=== PATIENT | male | born 1950 | race Caucasian/White ===

== ENCOUNTER 2017-05-20 16:10 | Emergency (ER) | payer OTHER ==
[~2017-05-20] VITALS: Ht 167.6 cm; Wt 102.0 kg
[2017-05-20 16:12] VITALS: Ht 167.6 cm; Wt 102.0 kg
[2017-05-20 19:00] VITALS: BP 145/84
== END 2017-05-20 19:01 | disposition home or self-care (01) ==
LOC: ED 16:10
DX: R07.81 Pleurodynia (principal); R03.0 Elevated blood-pressure reading, without diagnosis of hypertension; K21.9 Gastro-esophageal reflux disease without esophagitis
CPT/HCPCS: J1885

== ENCOUNTER 2017-11-30 14:28 | Emergency (ER) | payer OTHER ==
[2017-11-30 14:32] VITALS: Ht 167.6 cm
[2017-11-30 15:20] VITALS: BP 133/81
== END 2017-11-30 15:20 | disposition home or self-care (01) ==
LOC: ED 14:28
DX: M10.072 Idiopathic gout, left ankle and foot (principal); E11.9 Type 2 diabetes mellitus without complications; K21.9 Gastro-esophageal reflux disease without esophagitis
CPT/HCPCS: J1885

== ENCOUNTER 2018-11-15 13:47 | Emergency (ER) | payer MEDICARE, OTHER ==
[~2018-11-15] VITALS: Ht 167.6 cm; Wt 90.9 kg
[2018-11-15 14:19] VITALS: Ht 167.6 cm; Wt 90.9 kg
[2018-11-15 15:44] VITALS: BP 121/71
== END 2018-11-15 15:44 | disposition home or self-care (01) ==
LOC: ED 13:47
DX: B35.9 Dermatophytosis, unspecified (principal); I10 Essential (primary) hypertension; E11.9 Type 2 diabetes mellitus without complications; K21.9 Gastro-esophageal reflux disease without esophagitis; Z98.890 Other specified postprocedural states

== ENCOUNTER 2018-12-16 13:07 | Emergency (ER) | payer MEDICARE, OTHER ==
[2018-12-16 14:52] LABS: CALCIUM 8.3 mg/dL (8.5-10.1); CARBON DIOXIDE 28.7 mmol/L (21-32); CHLORIDE SERUM 106 mmol/L (98-107); GFR1 > 60 mL/min; GLUCOSE SERUM 133 mg/dL (74-106); POTASSIUM SERUM 3.8 mmol/L (3.5-5.1); SODIUM SERUM 140 mmol/L (136-145)
[2018-12-16 15:49] VITALS: BP 122/74
== END 2018-12-16 15:49 | disposition home or self-care (01) ==
LOC: ED 13:07
PROVIDERS: Emergency Medicine
DX: R25.2 Cramp and spasm (principal); I10 Essential (primary) hypertension; E11.9 Type 2 diabetes mellitus without complications; K21.9 Gastro-esophageal reflux disease without esophagitis
CPT/HCPCS: J1885

== ENCOUNTER 2019-05-10 20:46 | Observation (INO) | payer OTHER ==
[~2019-05-10] VITALS: Ht 167.6 cm; Wt 87.5 kg
[2019-05-10 20:52] VITALS: Ht 167.6 cm; Wt 87.5 kg
[2019-05-10 23:54] LABS: BASOPHIL % 0.6 % (0-2); PLATELET COUNT 132 x10^3mcL (130-400); RED CELL DISTRIBUTION WIDTH 13.4 % (11.5-14.5)
[2019-05-11 00:09] LABS: ALBUMIN 3.8 g/dL (3.4-5.0); ALKALINE PHOSPHATASE 80 U/L (46-116); ALT/SGPT 33 U/L (16-63); AMYLASE 77 U/L (25-115); AST/SGOT 29 U/L (15-37); BILIRUBIN TOTAL 0.4 mg/dL (0.20-1.00); CALCIUM 8.7 mg/dL (8.5-10.1); CARBON DIOXIDE 27.5 mmol/L (21-32); CHLORIDE SERUM 103 mmol/L (98-107); GFR1 > 60 mL/min; GLUCOSE SERUM 135 mg/dL (74-106); LIPASE 96 IU/L (73-393); POTASSIUM SERUM 4.6 mmol/L (3.5-5.1); SODIUM SERUM 139 mmol/L (136-145); TOTAL PROTEIN, SERUM 8.1 g/dL (6.4-8.2)
[2019-05-11 06:42] LABS: BASOPHIL % 0.3 % (0-2); RED CELL DISTRIBUTION WIDTH 12.9 % (11.5-14.5)
[2019-05-11 06:49] LABS: PLATELET COUNT 115 x10^3mcL (130-400)
[2019-05-11 07:14] LABS: CALCIUM 8.2 mg/dL (8.5-10.1); CARBON DIOXIDE 25.6 mmol/L (21-32); CHLORIDE SERUM 107 mmol/L (98-107); CREATININE SERUM 0.8 mg/dL (0.7-1.3); GFR1 > 60 mL/min; GLUCOSE SERUM 96 mg/dL (74-106); POTASSIUM SERUM 4.3 mmol/L (3.5-5.1); SODIUM SERUM 140 mmol/L (136-145)
[2019-05-11] MEDS ORDERED: PRILOSEC OTC20 M1 (07:41)
[2019-05-11 12:08] VITALS: BP 166/62
== END 2019-05-11 16:03 | disposition home or self-care (01) ==
LOC: ED 20:46 → MU 23:06
PROVIDERS: Emergency Medicine; ADMIT Internal Medicine Pulmonary Disease
DX: K56.609 Unspecified intestinal obstruction, unspecified as to partial versus complete obstruction (principal); K21.9 Gastro-esophageal reflux disease without esophagitis
CPT/HCPCS: G0378; J1200; J1650; J1885; J2765; J3490; J7030

== ENCOUNTER 2019-09-22 16:49 | Emergency (ER) | payer OTHER ==
[~2019-09-22] VITALS: Ht 177.8 cm; Wt 88.5 kg
[~2019-09-22 16:49] MED LIST: PRILOSEC OTC20 M1
[2019-09-22 16:58] VITALS: Ht 177.8 cm; Wt 88.5 kg
[2019-09-22 17:50] LABS: BASOPHIL % 0.7 % (0-2); PLATELET COUNT 143 x10^3mcL (130-400); RED CELL DISTRIBUTION WIDTH 13.5 % (11.5-14.5)
[2019-09-22 18:02] LABS: CALCIUM 8.8 mg/dL (8.5-10.1); CARBON DIOXIDE 25.3 mmol/L (21-32); CHLORIDE SERUM 104 mmol/L (98-107); GFR1 > 60 mL/min; GLUCOSE SERUM 102 mg/dL (74-106); POTASSIUM SERUM 3.9 mmol/L (3.5-5.1); SODIUM SERUM 140 mmol/L (136-145)
[2019-09-22 18:06] LABS: ALKALINE PHOSPHATASE 76 U/L (46-116); ALT/SGPT 36 U/L (16-63); AST/SGOT 27 U/L (15-37); BILIRUBIN TOTAL 0.4 mg/dL (0.20-1.00); LIPASE 126 IU/L (73-393)
[2019-09-22 18:11] LABS: TOTAL PROTEIN, SERUM 8.4 g/dL (6.4-8.2)
[2019-09-22 22:19] VITALS: BP 144/83
== END 2019-09-22 21:50 | disposition home or self-care (01) ==
LOC: ED 16:49
PROVIDERS: Student in an Organized Health Care Education/Training Program
DX: K56.600 Partial intestinal obstruction, unspecified as to cause (principal); I10 Essential (primary) hypertension; E11.9 Type 2 diabetes mellitus without complications; K21.9 Gastro-esophageal reflux disease without esophagitis; Z98.890 Other specified postprocedural states
CPT/HCPCS: 82962; J1885; J3490; J7030; Q9967

== ENCOUNTER 2019-12-21 00:18 | Emergency (ER) | payer OTHER ==
[~2019-12-21] VITALS: Ht 170.2 cm; Wt 89.8 kg
[2019-12-21 00:32] VITALS: Ht 170.2 cm; Wt 89.8 kg
[2019-12-21 02:04] LABS: BASOPHIL % 1.4 % (0-2); PLATELET COUNT 154 x10^3mcL (130-400)
[2019-12-21 02:23] LABS: CARBON DIOXIDE 24.8 mmol/L (21-32); CHLORIDE SERUM 104 mmol/L (98-107); CREATININE SERUM 0.9 mg/dL (0.7-1.3); GFR1 > 60 mL/min; GLUCOSE SERUM 119 mg/dL (74-106); SODIUM SERUM 139 mmol/L (136-145)
[2019-12-21 02:27] LABS: ALBUMIN 3.7 g/dL (3.4-5.0); ALKALINE PHOSPHATASE 74 U/L (46-116); ALT/SGPT 36 U/L (16-63); AMYLASE 68 U/L (25-115); AST/SGOT 34 U/L (15-37); BILIRUBIN TOTAL 0.51 mg/dL (0.20-1.00); LIPASE 109 IU/L (73-393); TOTAL PROTEIN, SERUM 7.9 g/dL (6.4-8.2)
[2019-12-21 02:33] LABS: POTASSIUM SERUM 3.8 mmol/L (3.5-5.1)
[2019-12-21 02:55] VITALS: BP 140/74
== END 2019-12-21 02:56 | disposition home or self-care (01) ==
LOC: ED 00:18
PROVIDERS: Emergency Medicine
DX: K21.9 Gastro-esophageal reflux disease without esophagitis (principal); I10 Essential (primary) hypertension; E11.9 Type 2 diabetes mellitus without complications; Z98.890 Other specified postprocedural states
CPT/HCPCS: J3490

== ENCOUNTER 2020-01-31 05:22 | Emergency (ER) | payer OTHER ==
[~2020-01-31] VITALS: Ht 170.2 cm; Wt 87.5 kg
[2020-01-31 05:33] VITALS: Ht 170.2 cm; Wt 87.5 kg
[2020-01-31 07:08] LABS: RED CELL DISTRIBUTION WIDTH 13.2 % (12.1-16.2)
[2020-01-31 07:11] LABS: BASOPHIL % 0.6 % (0.2-1.5); PLATELET COUNT 161 x10^3mcL (152-348)
[2020-01-31 08:55] LABS: ALBUMIN 4.2 g/dL (3.4-5.0); ALKALINE PHOSPHATASE 79 U/L (46-116); ALT/SGPT 39 U/L (16-63); AST/SGOT 33 U/L (15-37); BILIRUBIN TOTAL 0.4 mg/dL (0.20-1.00); CARBON DIOXIDE 24.6 mmol/L (21-32); CHLORIDE SERUM 102 mmol/L (98-107); CREATININE SERUM 0.8 mg/dL (0.7-1.3); GFR1 > 60 mL/min; GLUCOSE SERUM 123 mg/dL (74-106); LIPASE 91 IU/L (73-393); POTASSIUM SERUM 4.3 mmol/L (3.5-5.1); SODIUM SERUM 140 mmol/L (136-145)
[2020-01-31 08:56] LABS: TOTAL PROTEIN, SERUM 8.4 g/dL (6.4-8.2)
[2020-01-31 09:41] VITALS: BP 142/78
[2020-01-31 09:54] LABS: CALCIUM 9.4 mg/dL (8.5-10.1)
== END 2020-01-31 09:41 | disposition home or self-care (01) ==
LOC: ED 05:22
PROVIDERS: Emergency Medicine
DX: K29.70 Gastritis, unspecified, without bleeding (principal); I10 Essential (primary) hypertension; E11.9 Type 2 diabetes mellitus without complications; K21.9 Gastro-esophageal reflux disease without esophagitis

== ENCOUNTER 2020-02-06 17:11 | Emergency (ER) | payer OTHER ==
[~2020-02-06] VITALS: Ht 177.8 cm; Wt 88.5 kg
[2020-02-06 17:29] VITALS: BP 129/74; Ht 177.8 cm; Wt 88.5 kg
== END 2020-02-06 19:03 | disposition home or self-care (01) ==
LOC: ED 17:11
DX: R10.13 Epigastric pain (principal); I10 Essential (primary) hypertension; E11.9 Type 2 diabetes mellitus without complications; K21.9 Gastro-esophageal reflux disease without esophagitis; F17.210 Nicotine dependence, cigarettes, uncomplicated

== ENCOUNTER 2020-02-27 16:41 | Emergency (ER) | payer OTHER ==
[~2020-02-27] VITALS: Ht 167.6 cm; Wt 87.1 kg
[2020-02-27 17:20] VITALS: BP 151/85; Ht 167.6 cm; Wt 87.1 kg
== END 2020-02-27 19:03 | disposition home or self-care (01) ==
LOC: ED 16:41
DX: K43.9 Ventral hernia without obstruction or gangrene (principal); I10 Essential (primary) hypertension; E11.9 Type 2 diabetes mellitus without complications; K21.9 Gastro-esophageal reflux disease without esophagitis; Z98.890 Other specified postprocedural states
CPT/HCPCS: J1885

== ENCOUNTER 2020-03-01 14:56 | Emergency (ER) | payer OTHER ==
[~2020-03-01] VITALS: Ht 170.2 cm; Wt 86.6 kg
[2020-03-01 15:16] VITALS: BP 133/76
== END 2020-03-01 16:39 | disposition home or self-care (01) ==
LOC: ED 14:56
DX: K43.9 Ventral hernia without obstruction or gangrene (principal); I10 Essential (primary) hypertension; E11.9 Type 2 diabetes mellitus without complications; K21.9 Gastro-esophageal reflux disease without esophagitis; Z76.0 Encounter for issue of repeat prescription; Z98.890 Other specified postprocedural states
CPT/HCPCS: J1885

== ENCOUNTER 2020-04-17 16:30 | Emergency (ER) | payer OTHER ==
[~2020-04-17] VITALS: Ht 167.6 cm; Wt 85.7 kg
[2020-04-17 16:58] VITALS: BP 120/92; Ht 167.6 cm; Wt 85.7 kg
[2020-04-17] MEDS ORDERED: ULTRAM50 MG PO (17:38)
== END 2020-04-17 18:17 | disposition home or self-care (01) ==
LOC: ED 16:30
DX: K46.9 Unspecified abdominal hernia without obstruction or gangrene (principal); I10 Essential (primary) hypertension; E11.9 Type 2 diabetes mellitus without complications; K21.9 Gastro-esophageal reflux disease without esophagitis; Z98.890 Other specified postprocedural states
CPT/HCPCS: J1885